=== PATIENT | female | born 1965 | race Caucasian/White ===

== ENCOUNTER 2016-08-10 20:52 | Emergency (ER) | payer OTHER ==
[2016-08-10 21:24] LABS: BASOPHIL 0.6 % (0-2); EOSINOPHIL 2.3 % (0-5); HCT 45.3 % (37.0-47.0); HGB 15.1 g/dl (12.5-16.0); MCH 29.2 pg (25.0-31.0); MCHC 33.3 g/dL (32.0-36.0); MCV 87.5 fL (78.0-100.0); MONOCYTE 8.6 % (0-12); MPV 9.9 fL (6.0-9.5); NEUTROPHIL 35.5 % (41-80); PLT 334 K/uL (150-400); RBC 5.18 M/uL (4.20-5.40); RDW 14.7 % (11.5-14.0); WBC 11.7 K/uL (4.0-10.5)
[2016-08-10 21:39] LABS: ALBUMIN 4.4 g/dL (3.5-5.0); BILIRUBIN - TOTAL 0.2 mg/dL (0.1-1.0); CREATININE 0.8 mg/dL (0.5-1.0); GLOBULIN (CALCULATION) 2.9 g/dL (2.2-4.2); POTASSIUM 3.6 mmol/L (3.5-5.1); TOTAL PROTEIN 7.3 g/dL (6.4-8.3)
[2016-08-10 23:23] LABS: BILIRUBIN NEGATIVE (NEGATIVE); BLOOD NEGATIVE Ery/uL (NEGATIVE); CLARITY CLEAR (CLEAR); COLOR STRAW (YELLOW); GLUCOSE (U) NORMAL (NORMAL); KETONE (U) NEGATIVE (NEGATIVE); LEUKOCYTES NEGATIVE Leu/uL (NEGATIVE); NITRITE NEGATIVE (NEGATIVE); PROTEIN NEGATIVE (NEGATIVE); SPECIFIC GRAVITY 1.015 (1.001-1.030); UROBILINOGEN 0.2 mg/dL (0.2-1.0)
== END 2016-08-11 00:15 | disposition home or self-care (01) ==
LOC: FER 20:52
PROVIDERS: Emergency Medicine
DX: G43.909 Migraine, unspecified, not intractable, without status migrainosus (principal); F17.210 Nicotine dependence, cigarettes, uncomplicated; Z88.0 Allergy status to penicillin; Z88.1 Allergy status to other antibiotic agents; Z88.6 Allergy status to analgesic agent
CPT/HCPCS: 36415; 70450; 80053; 81003; 82150; 83690; 85025; J2270; J2405; J2765; J2930

== ENCOUNTER 2021-01-10 23:32 | Day surgery (SDCO) | payer OTHER ==
[~2021-01-10] VITALS: Ht 165.1 cm; Wt 95.3 kg
[2021-01-11 00:18] LABS: BASOPHIL 0.3 % (0-2); EOSINOPHIL 0.7 % (0-5); HCT 46.4 % (37.0-47.0); HGB 15.1 g/dl (12.5-16.0); LYMPHOCYTE 10.3 % (15-48); MCH 29.3 pg (25.0-31.0); MCHC 32.5 g/dL (32.0-36.0); MCV 90.1 fL (78.0-100.0); MONOCYTE 6.6 % (0-12); MPV 10.9 fL (6.0-9.5); NEUTROPHIL 81.6 % (41-80); NRBC 0; PLT 257 K/uL (150-400); RBC 5.15 M/uL (4.20-5.40); RDW 14.6 % (11.5-14.0); WBC 14.7 K/uL (4.0-10.5)
[2021-01-11 00:31] LABS: ALBUMIN 3.9 g/dL (3.4-5.0); BILIRUBIN - TOTAL 0.4 mg/dL (0.2-1.0); BUN/CREAT RATIO (CALC) 17.7 RATIO; CREATININE 0.96 mg/dL (0.51-0.95); GLOBULIN (CALCULATION) 3.3 g/dL; POTASSIUM 3.9 mmol/L (3.5-5.1); TOTAL PROTEIN 7.2 g/dL (6.4-8.2)
[2021-01-11 00:33] LABS: LACTIC ACID 1.2 mmol/L (0.4-1.9)
[2021-01-11 00:43] LABS: CORONAVIRUS 2019 SARS-COV-2 NEGATIVE (NEGATIVE); INFLUENZA A NAA NEGATIVE (NEGATIVE)
[2021-01-11 01:14] LABS: BILIRUBIN NEGATIVE (NEGATIVE); BLOOD TRACE-LYSED Ery/uL (NEGATIVE); CLARITY CLEAR (CLEAR); COLOR YELLOW (YELLOW); GLUCOSE (U) NORMAL (NORMAL); LEUKOCYTES NEGATIVE Leu/uL (NEGATIVE); NITRITE NEGATIVE (NEGATIVE); PROTEIN NEGATIVE (NEGATIVE); SPECIFIC GRAVITY 1.025 (1.001-1.030); UROBILINOGEN 0.2 mg/dL (0.2-1.0)
[2021-01-11 01:20] LABS: BACTERIA TRACE
[2021-01-11] MEDS ORDERED: WELLBUTRIN XL150 MG PO (06:03)
[2021-01-11] MEDS ORDERED: CELEXA20 MG PO (06:03)
[2021-01-11] MEDS ORDERED: LAMICTAL (BLUE)25 MG PO (06:04)
[2021-01-11] MEDS ORDERED: PRILOSEC20 MG PO (06:05)
[2021-01-11] MEDS ORDERED: FENOFIBRATE160 MG PO (06:06)
[2021-01-11] MEDS ORDERED: TERBINAFINE HC250 MG PO (06:07)
[2021-01-11] MEDS ORDERED: PEPCID AC20 MG PO (06:07)
[2021-01-11] MEDS ORDERED: MOBIC7.5 MG PO (06:09)
[2021-01-11] MEDS ORDERED: CRESTOR20 MG PO (06:09)
[2021-01-11] MEDS ORDERED: BACLOFEN 20MG T20 MG PO (06:10)
--- NOTE | 2021-01-11 12:39 | NUR ---
01/11/21 Patient was independent in the home and community prior to admission. Discharge is anticipated for 01/12/21 without any discharge planning needs.
[2021-01-12 04:09] LABS: BASOPHIL 0.3 % (0-2); EOSINOPHIL 0.3 % (0-5); HGB 12.5 g/dl (12.5-16.0); MCH 29.2 pg (25.0-31.0); MCHC 32.1 g/dL (32.0-36.0); MCV 91.1 fL (78.0-100.0); MONOCYTE 6.2 % (0-12); MPV 10.7 fL (6.0-9.5); NEUTROPHIL 74.8 % (41-80); NRBC 0; PLT 198 K/uL (150-400); RBC 4.28 M/uL (4.20-5.40); WBC 11.7 K/uL (4.0-10.5)
[2021-01-12 04:40] LABS: ALBUMIN 2.9 g/dL (3.4-5.0); BILIRUBIN - TOTAL 0.3 mg/dL (0.2-1.0); BUN/CREAT RATIO (CALC) 8.5 RATIO; CREATININE 0.82 mg/dL (0.51-0.95); MAGNESIUM 1.6 mg/dL (1.8-2.4); POTASSIUM 3.5 mmol/L (3.5-5.1); TOTAL PROTEIN 5.9 g/dL (6.4-8.2)
[2021-01-12] MEDS ORDERED: LEVAQUIN750 MG PO (12:19)
[2021-01-12] MEDS ORDERED: COMPAZINE10 MG PO (12:19)
[2021-01-12] MEDS ORDERED: METRONIDAZOLE500 MG PO (12:19)
== END 2021-01-12 13:10 | disposition home or self-care (01) ==
LOC: FER 23:32 → FTCU 01-11 04:40
PROVIDERS: Emergency Medicine Emergency Medical Services; Nurse Practitioner; ADMIT Internal Medicine
DX: A41.9 Sepsis, unspecified organism (principal); A09 Infectious gastroenteritis and colitis, unspecified; N17.9 Acute kidney failure, unspecified; E83.42 Hypomagnesemia; E78.5 Hyperlipidemia, unspecified; J44.9 Chronic obstructive pulmonary disease, unspecified; F32.9 Major depressive disorder, single episode, unspecified; F41.9 Anxiety disorder, unspecified; M54.9 Dorsalgia, unspecified; G89.29 Other chronic pain; K21.9 Gastro-esophageal reflux disease without esophagitis; F17.210 Nicotine dependence, cigarettes, uncomplicated; Z88.0 Allergy status to penicillin; Z88.2 Allergy status to sulfonamides; Z88.6 Allergy status to analgesic agent; Z88.1 Allergy status to other antibiotic agents; Z20.822 Contact with and (suspected) exposure to COVID-19
CPT/HCPCS: 36415; 80053; 81001; 83605; 83690; 83735; 84145; 85025; 87040; 87045; 87046; 87205; C9113; G0378; J1335; J1650; J1956; J2550; J3475; J7030; Q9967; U0002